=== PATIENT | female | born 1980 | race Caucasian/White ===

== ENCOUNTER 2018-08-29 18:39 | Emergency (ER) | payer OTHER ==
[2018-08-29] MEDS: LORAZEPAM 0.5 MG TAB PO (20:46)
[2018-08-29] MEDS: KETOROLAC 30 MG INJ IM (20:47)
[2018-08-29 20:56] LABS: URINE PH (Dip) POC 5.5 (5.0-8.5)
[2018-08-29 20:56] LABS: URINE BLOOD (Dip) POC Trace-intact (NEGATIVE); URINE GLUCOSE (Dip) POC Negative (NEGATIVE); URINE KETONES (Dip) POC Negative (NEGATIVE); URINE LEUKOCYTE EST (Dip) POC Trace (NEGATIVE); URINE NITRITE (Dip) POC Negative (NEGATIVE); URINE TOTAL PROTEIN POC Negative (NEGATIVE)
== END 2018-08-29 21:05 | disposition home or self-care (01) ==
LOC: FTE 18:39
DX: M54.5 Low back pain (principal); M54.2 Cervicalgia; R10.9 Unspecified abdominal pain
CPT/HCPCS: 72040; 74176; 81003; 81025; 96372; 99285-25